=== PATIENT | male | born 1970 | race Caucasian/White ===

== ENCOUNTER 2016-12-28 17:54 | Observation (INO) | payer BC ==
[2016-12-28] VITALS (7 sets, daily range): BP systolic 132–189; BP diastolic 73–114; PULSE 60–79; RESP 17–20; TEMP 95.7–97.8; O2SAT 97–100
[2016-12-28] MEDS ORDERED: GLIP5TAB8 PO (18:05)
[2016-12-28] MEDS ORDERED: METF500T PO (18:05)
--- NOTE | 2016-12-28 18:08 | PD ---
HPI Chief Complaint: Chest Pain Time Seen by Provider: 18:00 Travel History International Travel<30 days: No Contact w/Intl Traveler<30days: No Traveled to known affect area: No History of Present Illness HPI Patient 46-year-old male presents emergency Department with left-sided arm sided chest pain and pain in his left shoulder. Patient states been present on and off for the past week began fairly intense afternoon. Associated with some mild clamminess no nausea no vomiting and no shortness of breath. Patient is a diabetic high blood pressure and high cholesterol. 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 Nonsmoker. PFSH Past Medical History Diabetes: Yes Patient Takes Glucophage: Yes Medical other: Yes (SLEEP APNEA) Social History Alcohol Use: No Tobacco Use: No Substance Use: No Allergies-Medications (Allergen,Severity, Reaction): Coded Allergies: No Known Allergies (Unverified , 12/28/16) Reported Meds & Prescriptions Reported Meds & Active Scripts Active Reported Glipizide ER (Glipizide) 5 Mg Viola 5 Mg PO DAILY Take with breakfast or first main meal of the day. Metformin (Metformin HCl) 500 Mg Tab 500 Mg PO BIDPC With meals Review of Systems Except as stated in HPI: all other systems reviewed are Neg Physical Exam Narrative GENERAL: Well-developed well-nourished no apparent distress SKIN: Clammy skin but not diaphoretic. HEAD: Atraumatic. Normocephalic. EYES: Pupils equal and round. No scleral icterus. No injection or drainage. ENT: No nasal bleeding or discharge. Mucous membranes pink and moist. NECK: Trachea midline. No JVD. CARDIOVASCULAR: Regular rate and rhythm. No murmur appreciated. 2+ bilateral equal pulses in all 4 extremity's, RESPIRATORY: No accessory muscle use. Clear to auscultation. Breath sounds equal bilaterally. GASTROINTESTINAL: Abdomen soft, non-tender, nondistended. Hepatic and splenic margins not palpable. MUSCULOSKELETAL: No obvious deformities. No clubbing. No cyanosis. No edema. NEUROLOGICAL: Awake and alert. No obvious cranial nerve deficits. Motor grossly within normal limits. Normal speech. PSYCHIATRIC: Appropriate mood and affect; insight and judgment normal. Data Data Last Documented VS Vital Signs Date Time Temp Pulse Resp B/P Pulse Ox O2 Delivery O2 Flow Rate FiO2 12/28/16 18:55 60 18 138/80 100 Nasal Cannula 2 12/28/16 18:01 97.8 Orders Electrocardiogram (12/28/16 17:56) Ckmb (Isoenzyme) Profile (12/28/16 18:00) Complete Blood Count With Diff (12/28/16 18:00) Comprehensive Metabolic Panel (12/28/16 18:00) Magnesium (Mg) (12/28/16 18:00) Prothrombin Time / Inr (Pt) (12/28/16 18:00) Act Partial Throm Time (Ptt) (12/28/16 18:00) Troponin I (12/28/16 18:00) Ecg Monitoring (12/28/16 18:00) Iv Access Insert/Monitor (12/28/16 18:00) Oximetry (12/28/16 18:00) Oxygen Administration (12/28/16 18:00) Aspirin Chew (Aspirin Chew) (12/28/16 18:15) Nitroglycerin Sl (Nitrostat Sl) (12/28/16 18:15) Chest, Single Ap (12/28/16 ) Admit Order (Ed Use Only) (12/28/16 ) Labs Laboratory Tests Test 12/28/16 18:05 White Blood Count 8.7 TH/MM3 Red Blood Count 5.84 MIL/MM3 Hemoglobin 15.5 GM/DL Hematocrit 48.1 % Mean Corpuscular Volume 82.3 FL Mean Corpuscular Hemoglobin 26.6 PG Mean Corpuscular Hemoglobin 32.3 % Concent Red Cell Distribution Width 11.9 % Platelet Count 212 TH/MM3 Mean Platelet Volume 8.9 FL Neutrophils (%) (Auto) 62.9 % Lymphocytes (%) (Auto) 26.9 % Monocytes (%) (Auto) 5.8 % Eosinophils (%) (Auto) 3.2 % Basophils (%) (Auto) 1.2 % Neutrophils # (Auto) 5.5 TH/MM3 Lymphocytes # (Auto) 2.3 TH/MM3 Monocytes # (Auto) 0.5 TH/MM3 Eosinophils # (Auto) 0.3 TH/MM3 Basophils # (Auto) 0.1 TH/MM3 CBC Comment AUTO DIFF Differential Comment AUTO DIFF CONFIRMED Prothrombin Time 11.6 SEC Prothromb Time International 1.0 RATIO Ratio Activated Partial 27.9 SEC Thromboplast Time Sodium Level 143 MEQ/L Potassium Level 3.7 MEQ/L Chloride Level 105 MEQ/L Carbon Dioxide Level 29.3 MEQ/L Anion Gap 9 MEQ/L Blood Urea Nitrogen 12 MG/DL Creatinine 0.92 MG/DL Estimat Glomerular Filtration 88 ML/MIN Rate Random Glucose 172 MG/DL Calcium Level 8.6 MG/DL Magnesium Level 2.1 MG/DL Total Bilirubin 0.4 MG/DL Aspartate Amino Transf 12 U/L (AST/SGOT) Alanine Aminotransferase 23 U/L (ALT/SGPT) Alkaline Phosphatase 74 U/L Total Creatine Kinase 53 U/L Troponin I LESS THAN 0.02 NG/ML Total Protein 7.4 GM/DL Albumin 4.0 GM/DL MDM Medical Decision Making Medical Screen Exam Complete: Yes Emergency Medical Condition: Yes Interpretation(s) EKG shows normal sinus rhythm normal axis normal R-wave progression. No concerning ST segment changes. Intervals within normal limits. this is a normal EKG. Differential Diagnosis Chest pain, ACS, AMI, GERD, pneumonia. Narrative Course Patient roomed in emergency department, was given nitroglycerin and had relief of his pain. Given aspirin as well. Initial EKG and troponin are negative. Patient does have risk factors including diabetes high blood pressure high cholesterol and recommended that he stay overnight for chest pain center observation and he is agreeable. Patient was discussed with Dr. Noel for observation status and she is agreeable. Diagnosis Primary Impression: Chest pain Qualified Code: R07.9 - Chest pain, unspecified type Admitting Information Admitting Physician Requests: Observation Condition: Stable Gonzalo Hurtado MD Dec 28, 2016 18:08
[2016-12-28 18:15] LABS: AUTOMATED NEUTROPHIL # 5.5 TH/MM3 (1.8-7.7); BASOPHIL # 0.1 TH/MM3 (0-0.2); BASOPHIL % 1.2 % (0.0-2.0); EOSINOPHIL # 0.3 TH/MM3 (0-0.4); EOSINOPHIL % 3.2 % (0.0-4.0); HEMATOCRIT 48.1 % (39.0-51.0); LYMPH % 26.9 % (9.0-44.0); LYMPHOCYTE # 2.3 TH/MM3 (1.0-4.8); MEAN CELL VOLUME 82.3 FL (80.0-100.0); MEAN CORPUSCULAR HEMOGLOBIN 26.6 PG (27.0-34.0); MEAN CORPUSCULAR HGB CONC 32.3 % (32.0-36.0); MONO % 5.8 % (0.0-8.0); NEUT % 62.9 % (16.0-70.0); PLATELET COUNT 212 TH/MM3 (150-450); RED BLOOD COUNT 5.84 MIL/MM3 (4.50-5.90); RED CELL DISTRIBUTION WIDTH 11.9 % (11.6-17.2); WHITE BLOOD COUNT 8.7 TH/MM3 (4.0-11.0)
[2016-12-28] MEDS ORDERED: ASPIRIN 81 MG CHEW TAB CHEW ONE (18:15)
[2016-12-28 18:17] LABS: HEMO FLAGS AUTO DIFF
[2016-12-28] MEDS: NITROGLYCERIN 0.4 MG SL 25 TABS/BTL SL SCH ×3 (18:18→18:25)
[2016-12-28 18:31] LABS: CHLORIDE 105 MEQ/L (98-107); POTASSIUM 3.7 MEQ/L (3.5-5.1); SODIUM (NA) 143 MEQ/L (136-145)
[2016-12-28 18:35] LABS: ANION GAP 9 MEQ/L (5-15); BICARBONATE 29.3 MEQ/L (21.0-32.0); BLOOD UREA NITROGEN 12 MG/DL (7-18); MAGNESIUM 2.1 MG/DL (1.5-2.5)
[2016-12-28 18:37] LABS: APTT (PATIENT) 27.9 SEC (24.3-30.1); PROTHROMBIN TIME - PATIENT 11.6 SEC (9.8-11.6)
[2016-12-28 18:38] LABS: ALT (GPT) 23 U/L (12-78); AST (GOT) 12 U/L (15-37); GLOMERULAR FILTRATION RATE 88 ML/MIN (>89)
[2016-12-28 18:39] LABS: TOTAL BILIRUBIN ADULT 0.4 MG/DL (0.2-1.0)
[2016-12-28 18:41] LABS: ALKALINE PHOSPHATASE 74 U/L (45-117)
--- NOTE | 2016-12-28 18:56 | RADHPO ---
EXAM DATE/TIME: 12/28/2016 18:34 [facility] COMPARISON: No previous studies available for comparison. INDICATIONS : Chest pain. MEDICAL HISTORY : None. SURGICAL HISTORY : None. ENCOUNTER: Initial ACUITY: 1 day PAIN SCORE: 4/10 LOCATION: Left chest FINDINGS: Portable AP view of the chest demonstrates a normal-sized cardiac silhouette. No effusion, consolidat ion, or pneumothorax is visualized. The bones and soft tissues demonstrate no acute abnormality. Mult iple EKG lines overlie the patient. CONCLUSION: No acute cardiopulmonary abnormality is identified. Jassi Rodriguez MD on December 28, 2016 at 18:53 Board Certified Radiologist. This report was verified electronically.
[2016-12-28 19:01] LABS: SCAN/DIFF AUTO DIFF CONFIRMED
[2016-12-28 19:14] LABS: CREATINE KINASE 53 U/L (39-308)
[2016-12-28] MEDS ORDERED: NALOXONE HCL 0.4 MG/ML AMP IV PRN (20:00)
[2016-12-28] MEDS ORDERED: SODIUM CHLORIDE 0.9% FLUSH 10 ML FLUSH IV FLUSH PRN (20:00)
[2016-12-28] MEDS ORDERED: GLIP1TAB49 PO (20:40)
[2016-12-28] MEDS ORDERED: DEXTROSE 5% IN WATE 1000ML INJ 1,000 ML IV SCH (21:00)
[2016-12-28] MEDS ORDERED: GLUCAGON 1 MG/ML VIAL OTHER PRN (21:00)
[2016-12-28] MEDS ORDERED: DEXTROSE 50% IN WATER 50 ML VIAL(D50) IV PRN (21:00)
[2016-12-28] MEDS: SODIUM CHLORIDE 0.9% FLUSH 10 ML FLUSH IV FLUSH SCH (21:00)
[2016-12-28 22:22] LABS: CREATINE KINASE 47 U/L (39-308)
[2016-12-29] MEDS ORDERED: NITROGLYCERIN 0.4 MG SL 25 TABS/BTL SL ONE (00:30)
[2016-12-29 01:18] LABS: CREATINE KINASE 48 U/L (39-308)
[2016-12-29 04:00] VITALS: BP 149/95; PULSE 65; RESP 20; TEMP 96.8; O2SAT 97
[2016-12-29] MEDS ORDERED: ACETAMINOPHEN/HYDROcodone 325 MG/5 MG TAB PO ONE (04:45)
[2016-12-29 06:56] LABS: AUTOMATED NEUTROPHIL # 5.5 TH/MM3 (1.8-7.7); BASOPHIL # 0.1 TH/MM3 (0-0.2); BASOPHIL % 0.8 % (0.0-2.0); EOSINOPHIL # 0.3 TH/MM3 (0-0.4); EOSINOPHIL % 3.7 % (0.0-4.0); HEMATOCRIT 44.7 % (39.0-51.0); HEMO FLAGS DIFF FINAL; LYMPH % 25.6 % (9.0-44.0); LYMPHOCYTE # 2.2 TH/MM3 (1.0-4.8); MEAN CELL VOLUME 82.7 FL (80.0-100.0); MEAN CORPUSCULAR HEMOGLOBIN 27.7 PG (27.0-34.0); MEAN CORPUSCULAR HGB CONC 33.5 % (32.0-36.0); MONO % 5.9 % (0.0-8.0); PLATELET COUNT 190 TH/MM3 (150-450); RED BLOOD COUNT 5.41 MIL/MM3 (4.50-5.90); WHITE BLOOD COUNT 8.6 TH/MM3 (4.0-11.0)
[2016-12-29 07:00] LABS: POTASSIUM 3.6 MEQ/L (3.5-5.1)
[2016-12-29 07:06] LABS: BICARBONATE 25.5 MEQ/L (21.0-32.0)
--- NOTE | 2016-12-29 07:24 | HHI.HP ---
[facility] Unknown Admission Diagnosis Chest Pain Diagnoses: (1) Chest pain Diagnosis: Principal (2) Hypertension Diagnosis: Secondary (3) Hyperlipidemia Diagnosis: Secondary (4) Diabetes Diagnosis: Secondary Chief Complaint: Left arm pain Travel History International Travel<30 Days: No Contact w/Intl Traveler <30 Da: No Traveled to Known Affected Are: No History of Present Illness Written by Darrell Hernandez, acting as scribe for Dr. Howell on 12/29/16 at 07: 41. 46 year-old male with known history of diabetes, hypertension, hyperlipidemia, history tobacco use who presented to the hospital because of left arm pain. Patient states that his normal state of health until 2 days ago he started developing left arm pain while he was working. 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 He indicates that the pain started in his left lower arm and then gradually progressed up into his left shoulder, left scapula, and left neck. Patient denies any chest pain, nausea, vomiting, lightheadedness, dizziness. Patient states that the pain does get worse whenever he takes a deep breath as well as with any movement of his upper body. Patient denies any previous cardiac workup. He indicates that the pain did improve after nitroglycerin and aspirin last evening, however the pain came back once he got to the medical floor. He had another dose of nitroglycerin without complete relief. He was given Warren which dulled the pain. He states that he had hard time getting comfortable and sleeping last night due to the pain. Patient was recommended observation chest pain center. Review of Systems Constitutional: DENIES: Diaphoretic episodes, Fatigue, Fever, Weight gain, Weight loss, Chills, Dizziness, Change in appetite, Night Sweats Endocrine: DENIES: Heat/cold intolerance, Polydipsia, Polyuria, Polyphagia Eyes: DENIES: Blurred vision, Diplopia, Eye inflammation, Eye pain, Vision loss , Double Vision Ears, nose, mouth, throat: DENIES: Vertigo, Nasal discharge, Throat pain, Ear Pain, Running Nose, Sinus Pain Respiratory: DENIES: Apneas, Cough, Snoring, Wheezing, Hemoptysis, Sputum production, Shortness of breath Cardiovascular: DENIES: Chest pain, Palpitations, Syncope, Dyspnea on Exertion , Lower Extremity Edema, Orthopnea Gastrointestinal: DENIES: Abdominal pain, Black stools, Bloody stools, Constipation, Diarrhea, Nausea, Vomiting, Difficulty Swallowing, Anorexia Genitourinary: DENIES: Sexual dysfunction, Urinary frequency, Urinary incontinence, Urgency, Hematuria, Dysuria, Nocturia, Penile Discharge, Testicular Pain, Testicular Swelling Musculoskeletal: COMPLAINS OF: Joint pain, Neck pain, DENIES: Muscle aches, Stiffness, Joint Swelling, Back pain Integumentary: DENIES: Abnormal pigmentation, Nail changes, Pruritus, Rash Hematologic/lymphatic: DENIES: Bruising, Lymphadenopathy Immunologic/allergic: DENIES: Eczema, Urticaria Neurologic: DENIES: Abnormal gait, Headache, Localized weakness, Paresthesias, Seizures, Speech Problems, Tremor, Poor Balance Psychiatric: DENIES: Anxiety, Confusion, Mood changes, Depression, Hallucinations, Agitation, Suicidal Ideation, Homicidal Ideation, Delusions Past Family Social History Past Medical History Hypertension Hyperlipidemia Diabetes History tobacco use Past Surgical History Denies any previous surgeries Reported Medications Reported Meds & Active Scripts Active Reported Glipizide ER (Glipizide) 5 Mg Viola 5 Mg PO DAILY Take with breakfast or first main meal of the day. Metformin (Metformin HCl) 500 Mg Tab 500 Mg PO BIDPC With meals Allergies: Coded Allergies: No Known Allergies (Unverified , 12/28/16) Family History Unknown because patient is adopted Social History Patient quit smoking 22 years ago, prior to that he smoked a half pack of service a day since he was 17 years old. Patient admits to rare alcohol use. Denies any illicit drugs Physical Exam Vital Signs Vital Signs Date Time Temp Pulse Resp B/P Pulse Ox O2 Delivery O2 Flow Rate FiO2 12/29/16 05:46 18 12/29/16 04:00 96.8 65 20 149/95 97 12/29/16 01:00 18 12/28/16 23:42 64 12/28/16 22:35 95.7 65 20 144/94 98 12/28/16 20:00 97.4 61 17 133/73 97 Room Air 12/28/16 18:55 60 18 138/80 100 Nasal Cannula 2 12/28/16 18:34 63 20 132/76 98 12/28/16 18:06 98 12/28/16 18:01 97.8 79 20 189/114 100 Physical Exam GENERAL: Well-developed, well-nourished, in no acute distress. alert and orientated HEENT: Head is normocephalic without any lesions or masses noted. Facial features are symmetric. Eyes: Pupils equal round reactive to light. Extraocular muscles are intact. Conjunctivae were clear. Oropharyngeal: Pharynx without any erythema edema. Tongue is midline without deviation. Buccal mucosa is moist without any masses or lesions NECK: Supple without any masses. Trachea midline no deviation. No JVD, no bruits are appreciated. Patient with obvious hypertonicity of the paracervical musculature. Palpation of the left paracervical musculature at levels C3C5 do illicit pain radiating down his left shoulder and into his left arm. Indicates this is same pain that he has been experiencing. Palpation of the musculature at the medial aspect of the scapula also reveals myospasms with eliciting pain into his left shoulder. CARDIAC: Regular rhythm, regular rate. S1/S2 are heard. No murmurs gallops or rubs. LUNGS: Clear to auscultation bilaterally. No wheeze, rhonchi or rales. No use of accessory muscles on inspiration or expiration. ABDOMEN: Soft, nontender. Nondistended. Bowel sounds heard in all 4 quadrants. No organomegaly or masses. Negative rebound, negative guarding EXTREMITIES: No edema, pulses are equal bilaterally. No cyanosis or clubbing NEUROLOGY: Mood and affect appear appropriate. Cranial nerves II through XII grossly intact. Muscle strength 5/5 in upper and lower extremities bilaterally. Deep tendon reflexes are 2+ in upper and lower extremities bilaterally. Laboratory Laboratory Tests Test 12/28/16 12/28/16 12/29/16 12/29/16 18:05 21:13 00:15 06:00 White Blood Count 8.7 8.6 Red Blood Count 5.84 5.41 Hemoglobin 15.5 15.0 Hematocrit 48.1 44.7 Mean Corpuscular Volume 82.3 82.7 Mean Corpuscular Hemoglobin 26.6 27.7 Mean Corpuscular Hemoglobin 32.3 33.5 Concent Red Cell Distribution Width 11.9 12.0 Platelet Count 212 190 Mean Platelet Volume 8.9 9.5 Neutrophils (%) (Auto) 62.9 64.0 Lymphocytes (%) (Auto) 26.9 25.6 Monocytes (%) (Auto) 5.8 5.9 Eosinophils (%) (Auto) 3.2 3.7 Basophils (%) (Auto) 1.2 0.8 Neutrophils # (Auto) 5.5 5.5 Lymphocytes # (Auto) 2.3 2.2 Monocytes # (Auto) 0.5 0.5 Eosinophils # (Auto) 0.3 0.3 Basophils # (Auto) 0.1 0.1 CBC Comment AUTO DIFF DIFF FINAL Differential Comment AUTO DIFF CONFIRMED Prothrombin Time 11.6 Prothromb Time International 1.0 Ratio Activated Partial 27.9 Thromboplast Time Sodium Level 143 144 Potassium Level 3.7 3.6 Chloride Level 105 108 Carbon Dioxide Level 29.3 25.5 Anion Gap 9 11 Blood Urea Nitrogen 12 11 Creatinine 0.92 0.84 Estimat Glomerular Filtration 88 98 Rate Random Glucose 172 223 Calcium Level 8.6 8.4 Magnesium Level 2.1 Total Bilirubin 0.4 Aspartate Amino Transf 12 (AST/SGOT) Alanine Aminotransferase 23 (ALT/SGPT) Alkaline Phosphatase 74 Total Creatine Kinase 53 47 48 Troponin I LESS THAN 0.02 LESS THAN 0.02 LESS THAN 0.02 Total Protein 7.4 Albumin 4.0 Result Diagram: 12/29/16 0600 12/29/16 0600 Imaging Last Impressions Chest X-Ray 12/28/16 0000 Signed Impressions: Service Date/Time: Wednesday, December 28, 2016 18:34 - CONCLUSION: No acute cardiopulmonary abnormality is identified. Jassi Rodriguez MD Assessment and Plan Problem List: (1) Frozen shoulder syndrome ICD Code: M75.00 Status: Acute (2) Radicular pain in left arm ICD Code: M79.2 Status: Acute (3) Shoulder pain, left ICD Code: M25.512 Status: Acute (4) Nontraumatic shoulder pain ICD Code: M25.519 Status: Acute Assessment and Plan Left neck, left scapula, left upper extremity pain. Possible component of cardiac disease. Patient with increased risk factor of hypertension, hyperlipidemia, diabetes, history tobacco use Likely muscle skeletal in nature due to reproducibility of pain on palpation of the cervical paraspinal musculature, scapular muscles. Patient ruled out for acute coronary event with serial cardiac enzymes have remained negative, serial EKG shows sinus rhythm without any changes We'll start patient on Motrin, relaxer for muscle skeletal pain Patient was counseled on muscle skeletal pain versus cardiac etiology. Patient instructed follow-up primary medical doctor to receive outpatient therapy Diabetes Accu-Cheks with sliding scale insulin History of hypertension, hyperlipidemia Blood pressure was accelerated on presentation, he remains borderline elevated this time Start lisinopril for blood pressure management and renal protection in a patient with diabetes DVT prevention Low risk, early ambulation This note was transcribed by lyudmila Hernandez. I, Dr. Sandip Howell personally performed the history, physical exam, and medical decision making; and confirmed the accuracy of the information in the transcribed note. Authenticated by Dr. Sandip Howell on 12/29/16 at 07:41. Discharge disposition Discharge home in stable condition Activity: [place]. Diet: Healthy heart diet Medications per medication reconciliation Follow-up with medical doctor in one week Code Status Full code Discussed Condition With patient, Problem Qualifiers (1) Chest pain: Qualified Code: R07.9 - Chest pain, unspecified type (2) Hypertension: Qualified Code: I15.9 - Secondary hypertension (3) Hyperlipidemia: Qualified Code: E78.5 - Hyperlipidemia, unspecified hyperlipidemia type (4) Diabetes: Qualified Code: E11.8 - Type 2 diabetes mellitus with complication, without long-term current use of insulin Darrell Hernandez Dec 29, 2016 07:24 Sandip Howell MD Dec 29, 2016 07:24
[2016-12-29 08:00] VITALS: BP 153/93; PULSE 64; RESP 17; TEMP 97.1; O2SAT 98
[2016-12-29 08:40] VITALS: PULSE 65
[2016-12-29] MEDS ORDERED: CYCL1TAB29 PO (08:44)
[2016-12-29] MEDS ORDERED: IBUP-232 PO (08:44)
[2016-12-29] MEDS ORDERED: PAME25CA PO (08:44)
[2016-12-29] MEDS ORDERED: NEUR100C PO (08:44)
--- NOTE | 2016-12-29 08:45 | HHI.DCPOC ---
Discharge Care Plan Diagnosis: (1) Nontraumatic shoulder pain (2) Shoulder pain, left Goals to Promote Your Health * To prevent worsening of your condition and complications * To maintain your health at the optimal level Directions to Meet Your Goals Take your medications as prescribed Follow your dietary instruction Follow activity as directed Keep your appointments as scheduled Take your immunizations and boosters as scheduled If your symptoms worsen call your PCP, if no PCP go to Urgent Care Center or Emergency Room Smoking is Dangerous to Your Health. Avoid second hand smoke Call the 24-hour hour crisis hotline for domestic abuse at Darrell Hernandez Dec 29, 2016 08:45
[2016-12-29] MEDS ORDERED: LISI-519 PO (08:46)
[2016-12-29] MEDS: SODIUM CHLORIDE 0.9% FLUSH 10 ML FLUSH IV FLUSH SCH (08:49)
[2016-12-29] MEDS ORDERED: LISINOPRIL 5 MG TAB PO SCH (09:00)
[2016-12-29] MEDS ORDERED: INSULIN ASPART SUPPLEMENTAL SCALE SQ SCH (11:00)
--- NOTE | 2016-12-29 16:50 | EKG ---
Date Performed: 12/29/2016 Time Performed: 00:20:48 PTAGE: 46 years EKG: Sinus rhythm Since previous tracing, no significant change noted NORMAL ECG PREVIOUS TRACING : 12/28/2016 21.08 DOCTOR: Monica Pacheco Interpretating Date/Time 12/29/2016 17:29:40
--- NOTE | 2016-12-29 16:50 | EKG ---
Date Performed: 12/28/2016 Time Performed: 17:59:20 PTAGE: 46 years EKG: Sinus rhythm NORMAL ECG NO PREVIOUS TRACING DOCTOR: Monica Pacheco Interpretating Date/Time 12/29/2016 17:28:58
--- NOTE | 2016-12-29 16:50 | EKG ---
Date Performed: 12/28/2016 Time Performed: 21:08:02 PTAGE: 46 years EKG: Sinus rhythm Since previous tracing, no significant change noted NORMAL ECG PREVIOUS TRACING : 12/28/2016 17.59 DOCTOR: Monica Pacheco Interpretating Date/Time 12/29/2016 17:29:22
== END 2016-12-29 11:11 | disposition home or self-care (01) ==
LOC: PHED 17:54 → PHEDA 19:59 → INTOOBSV 20:02 → OBSVTOIN 20:02 → PH3A 22:03
PROVIDERS: ADMIT Hospitalist; ATTEND Hospitalist
DX: M75.02 Adhesive capsulitis of left shoulder (principal); M79.602 Pain in left arm; M54.2 Cervicalgia; I10 Essential (primary) hypertension; E11.8 Type 2 diabetes mellitus with unspecified complications; E78.5 Hyperlipidemia, unspecified; E78.00 Pure hypercholesterolemia, unspecified; Z87.891 Personal history of nicotine dependence; Z79.84 Long term (current) use of oral hypoglycemic drugs
CPT/HCPCS: 71010; 80048; 80053; 82550; 82948; 83735; 84484; 85025; 85610; 85730; 93005; 99285; G0378; J7070